=== PATIENT | female | born 1965 | race Caucasian/White ===

== ENCOUNTER 2019-11-09 21:00 | Inpatient (IN) | payer OTHER ==
[~2019-11-09] VITALS: Ht 170.2 cm; Wt 132.4 kg
--- NOTE | ~2019-11-09 | D ---
[facility] [place] [address] DISCHARGE SUMMARY Name: HUDSON PANDEY Room #: 521B-B DIS IN M.R.#: [id number] Admission: 11/09/19 Attend Phys: Raciel Sandra DO Discharge: 11/20/19 Date of : 61 Report #: [id number] THIS REPORT FOR: cc: CORI - Family physician unknown FAM - Family physician unknown Raciel Sandra DO ~ THIS REPORT FOR: //name// CC: Raciel PERSAUD unknown Xiomy Kat DATE OF SERVICE: 11/20/2019 INPATIENT PSYCHIATRIC DISCHARGE SUMMARY ATTENDING PSYCHIATRIST: Raciel Sandra DO. FITNESS WORKER: Scott Hogan MD DISCHARGE DIAGNOSES: Mild neurocognitive disorder; bipolar disorder per history; currently exhibiting major depressive episode; generalized anxiety disorder; stimulant use disorder, in sustained remission. She is discharged on 1800-calorie diabetic diet as she has impaired fasting glucose. She is discharged to the [facility]. Psychiatric care to be continued by provider, Kathrine, at [facility]. Primary care will be done by Dr. Anson Lee at [facility]. Discharge activity level as tolerated. Encourage participation in day program groups. DISCHARGE MEDICATIONS: Atorvastatin 20 mg p.o. at bedtime for hyperlipidemia, amlodipine besylate 5 mg p.o. daily for hypertension, aspirin 81 mg oral daily for cardioprotection, bupropion XL 150 mg p.o. daily for depression, trazodone 100 mg p.o. at bedtime p.r.n. for sleep, Flonase 1 spray each nostril daily for allergic rhinitis, magnesium oxide 400 mg p.o. b.i.d. for supplementation of magnesium, polyethylene glycol 17 g dissolved in 8 ounces of water daily for bowel motility, metformin hydrochloride 500 mg p.o. b.i.d. with meals for impaired fasting glucose, folic acid 1 mg p.o. daily for supplementation, vitamin D 5000 international units p.o. daily for deficiency. Also, the patient should use albuterol metered dose inhaler 8.5 grams 2 puffs inhaled q. 4-6 hours p.r.n. for wheezing and the Pulmicort Flexhaler 1 inhalation twice a day for COPD. LABORATORY DATA: Significant laboratories on this admission, her hemoglobin A1c of 5.7, H and H on 11/19/2019 at 11.1 and 34.2, white count 5.8, platelet count [address] [address] DISCHARGE SUMMARY Name: HUDSON PANDEY Room #: 521B-B [facility] IN [facility]#: [id number] Admission: 11/09/19 Attend Phys: Raciel Sandra, DO Discharge: 11/20/19 Date of : 61 Report #: [id number]. Coags this admission, PT 10.6, INR 1.0. D-dimer was 1.65. The patient did receive V/Q scan as well as venous Doppler ultrasound, which were negative except for superficial right basilic vein thrombus which is too superficial to anticoagulate for. By the way, chest x-ray was done in conjunction with the V/Q scan. The only findings were no acute cardiopulmonary abnormality identified. REASON FOR ADMISSION: Back on 11/10/2019, the patient was transferred from [facility] where she was admitted after intentional overdose of metformin causing hypoglycemia. Her blood sugar was down to 40. The patient reported she did not take the overdose and then says that she did take an overdose, it was not intentional. The patient admitted she was feeling suicidal in the weeks leading up to overdose, thinking about getting a gun as recently as 1 month ago. Reported feeling depressed. HOSPITAL COURSE: The patient was admitted to Geriatric Psychiatry Unit. Initially, the patient had fair participation in the milieu. She would typically sit in the lounge chair. She could walk, but she was not a particularly active patient. She denied suicidal or homicidal ideation. During the course of the admission, I elected to have an overall simplification effort of being on one antidepressant and one sleeper and she had been on several more things prior to psychiatric admission. In the last several days of the admission, the patient was a bit avoidant of groups. I questioned her pointedly about this and it sounds like she got bored with things. There was no evidence of self-harm behavior or suicidal ideations on the last 3 days of the admission and the patient will benefit from being in the RCF as well as going to day programming at the nearby [facility]. PHYSICAL EXAMINATION: VITAL SIGNS: On the day of discharge, temperature 37.1, pulse 76, respirations 16, BP 107/60, O2 sat 91%. MUSCULOSKELETAL: Normal gait and station. MENTAL STATUS EXAMINATION: Well-developed, this is a super morbidly obese female appearing stated age. Attention intact. Concentration intact. Speech, soft, slow. Thought process linear and goal directed. Thought content, relative poverty of thought. No psychomotor agitation. Some psychomotor retardation. Denied SI or HI. Denied hopelessness and helplessness. Memory not formally tested. Insight limited. Judgment limited. Fund of knowledge, no greater than average. The patient was seen during admission by Dr. Gil Castillo, neuropsychologist, as there was concern of the dementia. The patient certainly has risk factors for one, but does not currently qualify for the diagnosis. General Health measures including weight loss as well as improving her overall mental health will be an asset and I do feel that supportive placement is in the patient's [facility] [address] [place] [address] DISCHARGE SUMMARY Name: HUDSON PANDEY Room #: 521B-B DIS IN M.R.#: [id number] Admission: 11/09/19 Attend Phys: Raciel Sandra DO Discharge: 11/20/19 Date of : 61 Report #: [id number] best interest given struggles over the last several years with just the [facility] services from [facility]. By: [id number] Raciel Sandra, /nt
[2019-11-09] MEDS ORDERED: PROAIR HFA8.5 GM INH (22:11)
[2019-11-09] MEDS ORDERED: LIPITOR 20 MG T20 M1 PO (22:12)
[2019-11-09] MEDS ORDERED: NORVASC5 MG PO (22:12)
[2019-11-09] MEDS ORDERED: PULMICORT0.5 MG/2 M INH (22:14)
[2019-11-09] MEDS ORDERED: FLONASE 0.05%50 MCG NARES (22:15)
[2019-11-09 23:00] VITALS: BP 177/94
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
[2019-11-10 07:37] VITALS: BP 170/76
[2019-11-10 11:00] VITALS: BP 170/76
--- NOTE | 2019-11-10 11:31 | NUR ---
ASSUMED CARE OF PATIENT AT 08:00. PATIENT SITTING IN DAY ROOM, RECEIVING BREATHING TREATMENTS. PATIENT DENIES NEEDS OR CONCERNS AT THIS TIME. PATIENT AMBULATES WITH STEADY GAIT. PATIENT WENT TO ROOM TO REST APPROX 10:50. REPORT GIVEN TO ELISSA COOPER AT 11:20.
--- NOTE | 2019-11-10 13:54 | NUR ---
Assumed care of patient at 11am. Patient in good spirits. Patient denies hi/si. Patient denies pain. Patient calm and cooperative. Patients affect blunted. Patient ambulates with out assistance. Patient takes medications whole with fluids. Will continue to monitor.
[2019-11-10 20:24] VITALS: BP 157/99
--- NOTE | 2019-11-11 05:19 | NUR ---
Assumed care on 11/10/19 @ 19:15, in bed awake alert and oriented X 4. Reports bm yesterday 11/09 after taking MOM. Acucheck 126, 0 s/s insulin required. Flat affect noted and sad countenance observed. Cooperated with assessment. Denies SI and HI. Denies hallucinations. Reports anxiety regarding car needs transmission repair and concerned about paying insurance. Bed in low position, up ad jovanni, continent of b&b. Will continue to monitor q 12 minutes for patient safety.
[2019-11-11 06:46] LABS: CALCIUM 8.5 mg/dL (8.5-10.1); CREATININE 1.1 mg/dL (0.6-1.0); POTASSIUM 3.1 mmol/L (3.5-5.1)
--- NOTE | 2019-11-11 07:30 | NUR ---
Assumed care of patient this am. Patient denies pain. Patient denies hi/si. Patient slept 8.2 hours. Patients affect is blunted. Patient ambulates without assistance. Patient takes medications whole with fluids. Patients assessment shows clear breath sounds, diminished in the bases. Bowel sounds active. S1 S2 heard with auscultation.
[2019-11-11 08:00] VITALS: BP 146/63
--- NOTE | 2019-11-11 08:35 | NUR ---
SW completed chart review and made a FX packet. JONATHON will f/u with Marilyn at [place] [phone] for pt who wants to be included in d/c planning.
[2019-11-11 08:46] VITALS: BP 146/63
--- NOTE | 2019-11-11 09:21 | NUR ---
JONATHON spoke with Marilyn Jenkins at [facility] and she stated that while passive SI is typical for thie pt, she was isolating for 2 weeks and believes this was a legitimate suicide attempt. LEON stated that they have started a discussion about placement at an F AL at d/c and will be working on this, as this pt is not safe to return home. She stated that pt will often turned down services as she does not want to feel like she is a burden but will accept assistance if the caregiver reports that this is what we get paid to do.
[2019-11-11 19:30] VITALS: BP 135/72
--- NOTE | 2019-11-11 22:58 | NUR ---
Care assumed of patient at 1915: Patient seated in recliner, watching TV at start of shift. Patient presents with blunted, flat affect. Appears depressed and sad. Reports depression as 5/10 and anxiety as 7/10. Patient not observed interacting with peers. Isolating self to chair and withdrawn. Patient did report that she was able to sleep well last night after receiving Trazodone and requested same medication tonight. Scheduled medication provided as well as PRN Trazodone. Patient ate 100% HS snack. Discussed coping mechanisms. Patient smiled and said that she doesn't have any. Discussed what patient enjoys to do and she stated "to watch TV". Asked patient to think of other activities out of her comfort zone that she would be willing to try. Patient alert and oriented x4. Denies SI/HI/AH/VH. No delusional or paranoia behaviors observed. Denies pain or discomfort. Patient was able to ambulate to her room independently, complete HS ADL independently and retire to bed at a reasonable hour. Patient resting quietly at this time.
--- NOTE | 2019-11-12 10:11 | NUR ---
Sitting in dining room without s/o distress. Ambulates to room with slow, steady gait. Flat, sad affect with little spontaneous conversation but compliant with questions. Alert and orientated X 4. When asked if she knows why she is here she states that she got confused and took too much of her medicine and got a kidney injury. When asked about SI she states, "No." and states that she has no thoughts of harming herself but that if she "had a heart attack and fell over that wouldn't be a bad thing." When asked to elaborate she repeated that she has no thoughts of harming herself. Compliant with meds and assessment. States her back hurts 5/10 but does not want to take any medication for it. Offered Tylenol and she declined and stated she would ask if it got worse. Breath sounds clear t/o, bilaterally equal. RT med not documented, RT called at approximately 1000, states they are in the ER and will get to it when they can. Reg HR auscultated. Color pink with brisk capillary refill and palpable peripheral pulses. Independent with voiding. Active bowel sounds over large, rounded abdomen. Healing red linear area 3-4mm and approximately 6 cm in length on skin in L flank area. She states it doesn't hurt and that she has been told it has been there since she has been in the hospital. She states she can't feel it and doesn't know where it came from. Requesting MOM, states she feels she has to have a stool but will need help. MOM given.
--- NOTE | 2019-11-12 10:16 | NUR ---
Sw met with Pt and she stated that she was feeling better but did not want to return farshad and would prefer to live in an RCF. SW reported to pt that she was talking to Marilyn and that there was plans started to transisiton her there, either from home or this admission. Pt understood and was grateful for the update.
[2019-11-12 10:55] VITALS: BP 108/65
--- NOTE | 2019-11-12 12:45 | NUR ---
Terrence spoke with Marilyn and confirmed that pt was willing to go to an AL or RCF. Marilyn will be calling back with names of placements and this worker will send out the referrals.
--- NOTE | 2019-11-12 13:46 | NUR ---
Assess due to extreme class III obesity with BMI 46. Admit to [facility] with anxiety, cocaine substance abuse, SI attempt/OD. Eating 100% of meals and BG under control 133-167. No specific food preferences stated. Chart reviewed and noted pt had reported 100 lb wt loss over past year some intentional, other likely related lifestyle abuse, behaviors. No longer has acute kidney injury from OD; bun wnl, creatinine 1.1, K+ is low. Recommend remove renal diet restriction but continue carb control and [facility] altered chop diet. Low nutrition risk
[2019-11-12 19:44] VITALS: BP 100/62
[2019-11-13 00:26] VITALS: BP 100/62
--- NOTE | 2019-11-13 02:21 | NUR ---
193 RESUMMMED CARE FROM DAY SHIFT, PATIENT IN DAY ROOM IN A RECLINER SITTING QUIET WATCHING TV. I ASKED PATIENT HOW HER DAY WAS, SHE STATES SHE DID NOT TRY TO KILL HERSELF. SHE STATES SHE DID NOT REALIZE SHE HAD TOOK EXTRA PILLS. SHE DENIES SI/HI/AH/VH AT PRESENT, HER AFFECT IS FLAT SHE DENIES ANY PAIN. HER BLOOD SUGARS HAVE BEEN WITHIN RANGE, SHE IS COOPERATIVE CALM. PATIENT TOOK MEDICATION WITHOUT INCIDENCE AND WENT TO BED AFTER TAKING MEDICATION. WILL CONTINUE TO MONITOR PATIENT FOR BEHAVIORS AND SAFETY.
--- NOTE | 2019-11-13 07:30 | NUR ---
Assumed care of patient this am. Patient calm and pleasant. Patients affect is flat. Patient denies hi/si. Patient denies pain. Patient ambulates without assistance. Patient takes medications whole with fluids. Patients assesment shows clear breath sounds, active bowel sounds, and s1 s2 heard with auscultation. We will continue to monitor.
[2019-11-13 07:40] VITALS: BP 149/75
[2019-11-13 08:00] VITALS: BP 149/75
--- NOTE | 2019-11-13 11:29 | NUR ---
REC removing renal diet as HALLIE resolved. Pt's K+ actually low at 3.1 mEq/L per 11/11 labs and renal diet will further restrict potassium. Recommend replacing K+ and rechecking labs.
[2019-11-13 12:50] LABS: ABSOLUTE NEUTROPHILS 3.4 thou/uL (1.4-8.2); BASOPHILS 0.6 % (0.0-2.0); EOSINOPHILS 3.1 % (0.0-3.0); HEMATOCRIT 33.4 % (37.0-47.0); HEMOGLOBIN 10.9 gm/dL (12.0-15.0); MCH 28.9 pg (26.0-34.0); MCHC 32.6 g/dL (28.0-37.0); MCV 88.5 fL (80.0-100.0); MONOCYTES 8.4 % (1.0-8.0); PLATELET COUNT 257 thou/uL (150-400); POLYS 55.9 % (36.0-66.0); RBC 3.77 mil/uL (4.20-5.00); RDW 13.7 % (10.5-14.5)
[2019-11-13 13:21] LABS: ALBUMIN 3.1 g/dL (3.4-5.0); CALCIUM 8.8 mg/dL (8.5-10.1); CREATININE 1.2 mg/dL (0.6-1.0); MAGNESIUM 1.8 mg/dL (1.8-2.4); PHOSPHORUS 3.2 mg/dL (2.5-4.9); POTASSIUM 3.4 mmol/L (3.5-5.1); TOTAL BILIRUBIN 0.6 mg/dL (<0.1-1.0)
[2019-11-13 18:18] LABS: FOLIC ACID 9.9 ng/mL (8.6-58.9)
[2019-11-13 19:40] VITALS: BP 144/76
--- NOTE | 2019-11-13 23:30 | NUR ---
PATIENT UP IN RECLINER IN TV ROOM WHEN THIS NURSE CAME ON SHIFT AT 1900. PATIENT WITH FLAT AFFECT BUT CALM AND COOPERATIVE. HER ASSESSMENT WAS WNL. VSS. SHE DENIES PAIN. PATIENT DID HAVE AN US DONE OF BOTH BLE'S TONIGHT D/T INCREASED D-DIMER TEST RESULTS. HEPARIN 5000U SQ STARTED THIS EVENING AND GIVEN IN HER LEFT LOWER ABDOMEN. PATIENT HAD PUDDING FOR HS SNACK. SHE IS CURRENTLY IN BED AND SLEEPING. CONTINUAL ROUNDS TO CHECK FOR SAFETY.
--- NOTE | 2019-11-14 01:10 | NUR ---
PATIENT HAD RESPIRATORY TREATMENT AROUND 1999. NO C/O OR SIGNS OF SOA OR DISTRESS. PATIENT SLEEPING SOUNDLY NOW.
--- NOTE | 2019-11-14 04:51 | NUR ---
PATIENT SLEEPING. PATIENT HAS DENIED SI, HI, AVH EARLIER THIS EVENING. PATIENT STATES THAT SHE IS GOING TO GROUPS AND HOPING TO LEARN SOMETHING THAT SHE CAN WORK ON TO IMPROVE HER LIFE. SHE STATES SHE DOESN'T TALK IN THE GROUPS BUT SHE DOES LISTEN AND FINDS SOME OF THE THINGS HELPFUL. CONTINUING TO MONITOR.
--- NOTE | 2019-11-14 08:15 | NUR ---
SW completed chart review and pt is showing insight into her impulses and behaviors but does not feel safe to return to home alone. Pt is wanting and willing to stay in an AL or RCF. Sw completed the SLUMS and pt scored a 18/30. She really struggles with recall and reported this to Dr escobedo. Pt will be getting more neurotesting this week to rule out dementia and a major neurocognitive disorder. JONATHON will follow up with Marilyn today and provide an update.
[2019-11-14 09:09] VITALS: BP 155/85
--- NOTE | 2019-11-14 11:06 | NUR ---
FLAT AFFECT-DELAYED VERBAL RESPONSES-NAPPING IN DAYROOM DURING ANY UNSTRUCTURED TIME-WILL ATTEND SCHEDULED ACTIVITIES BUT MINIMAL PARTICIPATION. DURING 1;1 DENIES C/O PAIN DISCOMFORT. RESPONSES OR DELAYED-POOR EYE CONTACT. EYES ARE CLOSED OR PARTIALLY CLOSED DURING INTERACTION. WITH MUCH PROMPTING DID DISCLOSE HAS BEEN DEPRESSED FOR "A LONG TIME" AND "NOTHING REALLY HELPS". HOPELESS/HELPLESS ATTITUDE DISPLAYED WHEN OFFERED SUGGESTIONS FOR SELF CARE SHRUGS SHOULDERS IN AN APATHETIC MANNER. RATES DEPRESSIVE SYMPTOMS A 7 ON 1-10 SCALE. DENIES SI/SH/HI. PT TO HAVE LUNG SCAN LATER THIS PM-[facility] CONTACTED THIS RN WITH INSTRUCTIONS AND IV STARTED PER IV TEAM FOR PROCEDURE
[2019-11-14 19:36] VITALS: BP 96/58
[2019-11-14 22:11] VITALS: BP 96/58
[2019-11-14 23:09] LABS: SYPHILIS AB Non Reactive (Non Reactive)
--- NOTE | 2019-11-15 01:35 | NUR ---
Pt. sitting in recliner in day room at start of shift. Pt. voiced no complaints. HS fsbs + 167 and 3 units of Humalog was given. Heparin 5,000 IU given to left lower abd. as ordered. Pt.'s affect very flat and she was quiet. Pt. is up ad jovanni without difficulty. NO s/s distress noted.
--- NOTE | 2019-11-15 08:33 | NUR ---
Date of Admission: 11/09/19 Date of Activity Therapy Assessment: 11/12/19 Activity Goal: Leisure awareness, motivation Initial Goal: 2 Group activities/day Weekly progress towards goal: Did not achieve goals Group participation level: Minimal Behaviors observed: Patient will attend groups but is seen sitting in recliner, legs reclined, eyes closed. When spoken to patient replies in a low voice/flat affect. Often replies, "existing" or "here" when asked how she feels she is progressing towards goals. Patient continues to find it difficult to identify leisure interests more than Zoroastrianism music. Plan: No change towards goal
--- NOTE | 2019-11-15 08:45 | NUR ---
TERRENCE called and left a VM with Marilyn QUINTERO and requested an update and possible referral placements to be sent. D/C is likely next week once placement is established. Terrence will f/u later today.
[2019-11-15 09:25] VITALS: BP 146/83
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
--- NOTE | 2019-11-15 12:23 | NUR ---
JONATHON FAXEd referral to [facility].
[2019-11-15 15:00] VITALS: BP 124/72
--- NOTE | 2019-11-15 18:26 | NUR ---
FLAT AFFECT AND DELAYED VERBAL RESPONSES. DOES APPEAR DROWSY IN AM-AND REPORTS FEELING LIKE "I HAVE A HANGOVER" CAN'T WAKE UP WHICH SHE ATTRIBUTES TO TRAZADONE-DOES STATE AM DROWSINESS IS "BETTER THAN YESTERDAY" DENIES C/O PAIN OR PHYSICAL DISCOMFORT. WHEN ASKED ABOUT SHORTNESS OF BREATH STATES "ITS A LITTLE BETTER THAN USUAL" 02 SAT FOR AM VS 92 PERCENT-WHEN CHECKED LATER IN SHIFT AT APPROX 1500 IS 93 PERCENT ON RA. AM BP MILDLY ELEVATED AT 146/83-RECHECK AFTER AM MEDICATIONS 124/76. DENIES SUICIDAL IDEATION SELF HARM OR HOMICIDAL THOUGHTS. DOES REPORT MOOD "SAME ALWAYS" "I'M JUST HERE" REPORTS SIGNIFICANT AND PERSISTANT ANHEDONIA AND LIMITED SUPPORT STATING "BOND UNDERWRITER" WAS HER ONLY SUPPORT SYSTEM. AMBULATES INDEPENDENTLY IN HALLWAY WITHOUT ASSISTVE DEVICES AND GAIT IS STEADY. RATES DEPRESSIVE SYMPTOMS A 7 OUT OF 10 WHICH IS UNCHANGED FROM 2-20 AM MS EXAM. REFUSED SHOWER/CLOTHING CHANGE WHEN OFFERED STATING "I WILL PROBABLY DO IT TOMORROW" WHEN ASKED TO IDENTIFY 1 THINK SHE WAS INTERESTED IN OR ENJOYED STATES "I LIKE TO WATCH THE NEWS SOMETIMES"
[2019-11-15 19:52] VITALS: BP 113/62
--- NOTE | 2019-11-16 01:25 | NUR ---
Care assumed of patient at 1915: Patient seated in dayroom at start of shift in recliner. Patient watching TV, isolating to self. Patient presents with blunted affect, appears sad, depressed. Patient reports feeling anxious rated 5/10 due to wanting to go home. However, denies feeling depressed. Denies pain or discomfort. Patient alert and oriented x4. Cooperative, quiet, only answering simple, short responses. Patient would not engage with nurse about any type of topic brought up. Patient alert, does not appear drowsy or lethargic. Patient took HS medication without difficulty. Ate 100% HS snack. Not observed interacting with peers throughout the evening. Denies SI/HI/AH/VH. No agitation or irritability observed. Patient retired to bed at a reasonable hour and has been resting quietly since.
[2019-11-16 06:15] VITALS: BP 147/69
[2019-11-16 08:17] VITALS: BP 147/69
--- NOTE | 2019-11-16 13:33 | NUR ---
0715 Lying in bed sleeping without s/o distress. Became irritated when lights were turned on but was compliant with assessment. Alert and orientated x4. Denies SI/HI. No mention of pain. Breath sounds clear t/o, bilaterally equal, slightly diminished in lower lobes. Reg HR auscultated. Color pink with brisk capillary refill and palpable peripheral pulses. Voiding independently. Active bowel sounds over large, soft abdomen. Ambulates to day room with slow, steady gait. 0930 Sitting in recliner without s/o distress. Flat affect, monosyballic responses to questions. 1330 Becames irritated when asked to get up and walk around the unit a couple of times. Stated, "This is such bull shit!" and "I can't walk that far." Explained why it was important to ambulate. She got up and walked around unit twice and then returned to the recliner where she is currently sleeping without s/o distress.
[2019-11-16 20:34] VITALS: BP 100/51
--- NOTE | 2019-11-16 22:44 | NUR ---
Care assumed of patient at 1915: Patient resting in bed at start of shift. Easily aroused. Patient presents with flat affect, depressed mood. Poor eye contact made. Answered questions in short, one word answers. Denies SI/HI/AH/VH. No delusional or paranoia behaviors observed. Patient denies feeling depressed. Reports she is anxious about not being able to go home. Rates anxiety 5/10. Patient denies pain or discomfort. Cooperative with assessment. No irritability or agitation observed. Patient asked the time, which was provided. Patient then visualized going to the dayroom. Patient politely asked for a snack which was provided. Ate 100% HS snack. Took HS medication whole without difficulty. Patient isolative, withdrawn. Did not converse with nurse or peers more than what was necessary. Patient did report having a bad day and not wanting to be around others. Discussed that tomorrow is a new day and a new start. Discussed having the mind set that it will be a great day despite being in the hospital. Patient rather negative with each coping mechanism discussed. Patient resting quietly in bed at this time.
[2019-11-17 08:10] VITALS: BP 136/68
[2019-11-17 09:39] LABS: ABSOLUTE NEUTROPHILS 3.7 thou/uL (1.4-8.2); BASOPHILS 0.6 % (0.0-2.0); EOSINOPHILS 3.4 % (0.0-3.0); LYMPHOCYTES 29.2 % (24.0-44.0); MCH 28.7 pg (26.0-34.0); MCHC 32.3 g/dL (28.0-37.0); MCV 88.9 fL (80.0-100.0); MONOCYTES 8.4 % (1.0-8.0); PLATELET COUNT 207 thou/uL (150-400); POLYS 58.4 % (36.0-66.0); RBC 3.82 mil/uL (4.20-5.00); RDW 13.7 % (10.5-14.5); WBC 6.4 thou/uL (4.0-11.0)
[2019-11-17 09:53] LABS: ALBUMIN 3.1 g/dL (3.4-5.0); CALCIUM 9.6 mg/dL (8.5-10.1); CREATININE 1.2 mg/dL (0.6-1.0); POTASSIUM 3.5 mmol/L (3.5-5.1); TOTAL BILIRUBIN 0.4 mg/dL (<0.1-1.0)
[2019-11-17 10:00] LABS: MAGNESIUM 1.6 mg/dL (1.8-2.4)
[2019-11-17 10:03] LABS: PROTIME 10.6 Seconds (9.3-11.4)
--- NOTE | 2019-11-17 14:53 | NUR ---
CONTINUES TO DISPLAY FLAT AFFECT-DELAYED VERBAL RESPONSES AND POOR EYE CONTACT. WHEN ASKED ABOUT MOOD STATES "SAME" AND RATES DEPRESSIVE SYMPTOMS A 7-8 ON 1-10 SCALE. CONTINUES TO DENY SI/SH/HI WHEN ASKED. GOOD APPETITE. DID REPORT LOW BACK PAIN RATED AN 8 ON 1-10 SCALE-REPORTS THIS A LONG STANDING PAIN-NOT ACUTE. TYLENOL 650MG PO PRN AT 1100 FOR ABOVE NOTED WITH MINIMAL RELIEF-PT STATES UPON REASSESMENT THAT PAIN IS 6 ON 1-10 SCALE AND REFUSES PM GROUP STATING FEELS MORE COMFORTABLE LYING THEN SITTING SITTING SEEMS TO MAKE PAIN WORSE. DR EDUARDO CONTACTED AND 0 RECEIVED FOR LIDODERM PATCH FOR ABOVE NOTED.
[2019-11-17 19:37] VITALS: BP 101/56
[2019-11-17 19:45] VITALS: BP 101/56
--- NOTE | 2019-11-18 04:20 | NUR ---
Assumed care of patient this pm shift. Patient sitting in chair in the dining room watching tv and talking with patients. Patient states that she has low back pain. Patient denies si/hi. Patients affect flat. Patient calm and pleasant. Patient ambulates without assistance. patient takes medications whole. Patients assessment shows clear breath sounds diminished in the bases, active bowel sounds, and s1 s2 heard with auscultation.
[2019-11-18 07:38] VITALS: BP 152/66
--- NOTE | 2019-11-18 08:58 | NUR ---
Terrence called and left a VM jimmie Cole in admissions at [facility] [phone]. Terrence compelted chart review and sent updates including the [facility] amd the [facility]. Terrence reported iin the VM that pt was ready to d/c once they had a bed available.
--- NOTE | 2019-11-18 09:31 | NUR ---
Salvador Solis will be by around 1:30pm to meet with pt. Reported this to SW team.
[2019-11-18 10:27] VITALS: BP 152/66
[2019-11-18 11:03] VITALS: BP 152/66
--- NOTE | 2019-11-18 14:22 | NUR ---
Crow with [facility] came and visited pt. Pt seemed to like the facility. Crow said they can accept pt when is available to transport; Crow said he talked with before about picking pt up from hospital at discharge, taking her home to get some items, and then taking her to the facility. He said he is okay with a Mon or discharge. SW team will continue to follow pt during her stay on this unit.
--- NOTE | 2019-11-18 17:16 | NUR ---
Assumed care at 0700. Patient is calm and pleasant. Alert and oriented. Calm and pleasant. Vitals are stable. Today she has been too quite. retracts back to the room after meals or group therapy. Denies SI/HI, halucinations, and anxiety. Takes medications as ordered. good appetite. will continue to monitor.
[2019-11-18 19:36] VITALS: BP 116/49
--- NOTE | 2019-11-18 21:45 | NUR ---
Care assumed of patient at 1915: Patient sleeping in bed at start of shift. Patient easily aroused to voice. Patient flat, depressed, sad. Patient answering all questions appropriately. Providing short, one word answers. Patient declined to get up for HS snack and socialization. Isolated and withdrawn to her bed this shift. Odorous. Offered shower and assist in changing clothing. Stated "tomorrow". Difficulty making eye contact. Patient did take HS medication whole without difficulty. Patient declined scheduled breathing treatment for RT. Declined HS snack. Attempted to discuss coping mechanisms with patient and how her day was. Patient simply stated "I don't know". Patient has been in bed since start of shift and remains in bed sleeping at this time.
[2019-11-19 08:16] VITALS: BP 116/54
--- NOTE | 2019-11-19 09:45 | NUR ---
TERRENCE spoke with Marilyn QUINTERO and she will poultry picker pt on 11/21 at 10am and take her to [facility]. Terrence called and reported this to [facility] and then followed up with pt. Terrence made the d/c packet and FAX prepped. Terrence reported this to nursing and Dr escobedo.
--- NOTE | 2019-11-19 10:35 | NUR ---
Nutrition: Weekly follow up. Pt ready to discharge this week, with discharge set for 11/21 per latest note. Discharging to residential care facility. RD obtained provider permission to remove renal diet component last week on 11/15 as HALLIE resolved. K+ remains WNL; 3.5 mEq/L per 11/17. Eating essentially 100% of all meals. Meal average= 94% x last 6 days. Fasting BG near normal this AM at 139 mg/dl. If other daytime BGs found to be consistently > 180mg/dl, REC adding 1500 kcal restriction to limit to 4 CHO choices/meal. On vitamin D, folic acid supplementation. Recently completed 5 IM doses of B12 and ordered on daily magnesium x10 days for low Mag. No new wt's to assess. Remains low risk. Monitor BG trends and more add carb restrictions if become too elevated.
[2019-11-19 11:30] VITALS: BP 116/54
--- NOTE | 2019-11-19 12:16 | NUR ---
PATIENT CARE ASSUMED AT 1900. PATIENT ALERT AND ORIENTED BUT RELUCTANT TO ENGAGE WITH STAFF. QUESTIONED ADDRESSED TO HER SHE ANSWERS WITH ONE WORD ANSWERS. DOES NOT ENGAGE WITH PEERS OR STAFF UNLESS APPROACHED. AMBULATES FREELY AND INDEPENDENTLY WITH NO PROBLEMS. APPEARS SOMEWHAT DISHOVELED. EMERGES FROM ROOM FOR MEALS AND THEN RETURNS BACK TO BED INSULIN REQUIRED AT NOON FOR BLOOD SUGAR AT 221 - TOLERATED WELL. PATIENT HAS NO EYE CONTACT WHEN ADDRESSED. DETACHED AND DOES NOT WANT TO TALK. ASSESSMENT COMPLETION DIFFICULT DUE TO RELUCTANCE TO [employer] - ENCOURAGED TO ATTEND GROUP IN AFTERNOON- MUMBLED SOME VAGUE ANSWER. STATED SLEPT WELL WHEN QUESTIONED. AFFECT VERY FLAT AND BLUNTED AND MOOD DETACHED - CURRENTLY IN ROOM SLEEPING ONCE AGAIN.
--- NOTE | 2019-11-19 12:31 | NUR ---
Sw spoke with pt to update on d/c for tomorrow at 8am
--- NOTE | 2019-11-19 12:42 | NUR ---
Per [facility] request, SW faxed current meds list.
[2019-11-19 15:57] LABS: HEMATOCRIT 34.2 % (37.0-47.0); HEMOGLOBIN 11.1 gm/dL (12.0-15.0); MCH 28.7 pg (26.0-34.0); MCHC 32.5 g/dL (28.0-37.0); MCV 88.5 fL (80.0-100.0); RBC 3.86 mil/uL (4.20-5.00); RDW 13.7 % (10.5-14.5); WBC 5.8 thou/uL (4.0-11.0)
[2019-11-19 16:05] LABS: CALCIUM 8.9 mg/dL (8.5-10.1); CREATININE 1.2 mg/dL (0.6-1.0); MAGNESIUM 1.8 mg/dL (1.8-2.4); POTASSIUM 3.9 mmol/L (3.5-5.1)
[2019-11-19 19:29] VITALS: BP 123/72
--- NOTE | 2019-11-19 23:16 | NUR ---
Care assumed of patient at 1915: Patient was completing a shower at start of shift. Patient clean, tidy, new clothes worn. Patient seated in dayroom after shower. Presents with flat, blunted affect. However, while speaking with patient, she did smile a couple times and was more interactive than previous nights. Patient appeared to be more open to conversation and interaction. Alert and oriented x4. Denies SI/HI/AH/VH. No agitation or irritability observed. Patient reports "some" anxiety about being discharged in the morning. States that she does not do well with change but is open to new opportunities. Patient worried about her car since she does not have a place to store it and doubts that it will sell due to having a broken clutch. Patient encouraged to talk to her welfare case worker about concerns because there is always a solution. Patient reported lower back pain, provided PRN Tylenol, reports medication as helpful. Denies depression. Patient ate 100% HS snack. Took HS medication whole without difficulty. Reports being more hopeful of her future than in past days. Patient did report heartburn after retiring to bed. Order obtained for Mylanta 1x dose. Medication administered. At follow up, patient sleeping quietly in bed.
[2019-11-20 00:08] LABS: GLYCOHEMOGLOBIN (HGB A1C) 5.7 % (4.8-5.6)
[2019-11-20 07:50] VITALS: BP 107/60
[2019-11-20] MEDS ORDERED: LIPITOR 20 MG T20 M1 PO (07:54)
[2019-11-20] MEDS ORDERED: PROAIR HFA8.5 GM INH (07:54)
[2019-11-20] MEDS ORDERED: WELLBUTRIN XL150 MG PO (07:55)
[2019-11-20] MEDS ORDERED: NORVASC5 MG PO (07:55)
[2019-11-20] MEDS ORDERED: ASPIR 8181 MG PO (07:55)
[2019-11-20] MEDS ORDERED: TRAZODONE HCL100 MG PO (07:56)
[2019-11-20] MEDS ORDERED: FLONASE 0.05%50 MCG NASAL (07:57)
[2019-11-20] MEDS ORDERED: MAGNESIUM400 MG PO (07:57)
[2019-11-20] MEDS ORDERED: GLUCOPHAGE500 MG PO (07:58)
[2019-11-20] MEDS ORDERED: MIRALAX17 GM PO (07:58)
[2019-11-20] MEDS ORDERED: FOLIC ACID1 MG PO (07:59)
[2019-11-20] MEDS ORDERED: VITAMIN D325 MCG PO (07:59)
--- NOTE | 2019-11-20 08:06 | NUR ---
PT TOOK MEDS THIS AM WITHOUT ANY ISSUES. PT SITTING OUT IN DINING ROOM EATING BREAKFAST.
--- NOTE | 2019-11-20 08:45 | NUR ---
PT LEFT WITH FISH SALTER IN W/C TO VEHICLE. PT DENIES ANY SI AT THIS TIME. PT ATE BREAKFAST AND TOOK AM MEDS.
--- NOTE | 2019-11-20 09:01 | NUR ---
JONATHON faxed the d/c orders and summary. JONATHON also met with Marilyn and she was very complimentary to the care and communication during this pt sat inopt. She stated that she will be sending all of her referrals to [facility].
[2019-11-20 09:18] VITALS: BP 107/60
--- NOTE | 2019-11-20 10:35 | NUR ---
GAVE REPORT TO SHILPA AT [facility].
== END 2019-11-20 08:30 | DRG 57 ==
LOC: SBH 21:00
PROVIDERS: Internal Medicine; Psychiatry & Neurology Psychiatry; ADMIT Psychiatry & Neurology Psychiatry
DX: G31.84 Mild cognitive impairment of uncertain or unknown etiology (principal); N17.9 Acute kidney failure, unspecified; N18.3 Chronic kidney disease, stage 3 (moderate); I82.611 Acute embolism and thrombosis of superficial veins of right upper extremity; I13.0 Hypertensive heart and chronic kidney disease with heart failure and stage 1 through stage 4 chronic kidney disease, or unspecified chronic kidney disease; Z68.42 Body mass index [BMI] 45.0-49.9, adult; F32.9 Major depressive disorder, single episode, unspecified; F41.1 Generalized anxiety disorder; E78.5 Hyperlipidemia, unspecified; F41.9 Anxiety disorder, unspecified; F60.9 Personality disorder, unspecified; I50.9 Heart failure, unspecified; K21.9 Gastro-esophageal reflux disease without esophagitis; J44.9 Chronic obstructive pulmonary disease, unspecified; F15.10 Other stimulant abuse, uncomplicated; E66.01 Morbid (severe) obesity due to excess calories; E83.42 Hypomagnesemia; R19.7 Diarrhea, unspecified; F14.10 Cocaine abuse, uncomplicated; E53.8 Deficiency of other specified B group vitamins; G89.29 Other chronic pain; M54.9 Dorsalgia, unspecified; E11.22 Type 2 diabetes mellitus with diabetic chronic kidney disease; Z79.899 Other long term (current) drug therapy; Z79.82 Long term (current) use of aspirin; Z82.3 Family history of stroke; Z91.5 Personal history of self-harm; Z82.49 Family history of ischemic heart disease and other diseases of the circulatory system; Z80.8 Family history of malignant neoplasm of other organs or systems; Z87.891 Personal history of nicotine dependence
CPT/HCPCS: 10880